=== PATIENT | female | born 1985 | race Caucasian/White ===

== ENCOUNTER 2018-03-07 07:59 | Emergency (ER) | payer MEDICAID ==
[~2018-03-07] VITALS: Ht 152.4 cm; Wt 65.0 kg
[2018-03-07 08:07] VITALS: BP 105/46
== END 2018-03-07 12:44 | disposition home or self-care (01) ==
LOC: ER 11:18
DX: S63.614A Unspecified sprain of right ring finger, initial encounter (principal); X58.XXXA Exposure to other specified factors, initial encounter; Y93.89 Activity, other specified; Y92.89 Other specified places as the place of occurrence of the external cause
CPT/HCPCS: 73140; 99284

== ENCOUNTER 2023-03-16 22:46 | Emergency (ER) | payer BC, MEDICAID ==
[~2023-03-16] VITALS: Ht 152.4 cm; Wt 64.3 kg
[2023-03-16 23:41] VITALS: BP 104/59
[2023-03-17] MEDS ORDERED: TETANUS, DIPHTHERIA, PERTUSSIS VAC/PF 0.5ML (>10YR OLD) IM ONE (02:00)
[2023-03-17] MEDS ORDERED: CEPH500T MT (02:27)
[2023-03-17] MEDS ORDERED: IBUP-2028 MT (02:27)
== END 2023-03-17 02:58 | disposition home or self-care (01) ==
LOC: ER 22:46
DX: S96.991A Other specified injury of unspecified muscle and tendon at ankle and foot level, right foot, initial encounter (principal); W22.8XXA Striking against or struck by other objects, initial encounter; Y93.89 Activity, other specified; Y92.89 Other specified places as the place of occurrence of the external cause; Y99.8 Other external cause status; Z98.890 Other specified postprocedural states
CPT/HCPCS: 73630; 90471; 90715; 99283